=== PATIENT | male | born 2000 | race Caucasian/White ===

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

== ENCOUNTER 2019-01-11 11:27 | Outpatient (CLI) | payer OTHER ==
--- NOTE | 2019-01-11 11:52 | Diagnostic Imaging Report ---
PATIENT MR#: [id number] PATIENT PATIENT NAME: RITU DELATORRE DATE OF : 2000 REFERRING PHYSICIAN: Raquel Pichardo EXAM DATE: 01/11/2019 ACCESSION NUMBER: [id number] EXAM DESCRIPTION: CHEST 2VIEW HISTORY: CXR, CHRONIC COUGH, PT STATES PRODUCTIVE COUGH FOR ABOUT 6 MONTHS. PRIOR CXR FROM 06/07/17. COMPARISON: June 07, 2017 CHEST RADIOGRAPH, FRONTAL AND LATERAL: Upper mediastinum: Not widened. Heart: No cardiomegaly. Lungs: No lobar infiltrate, pulmonary edema, pneumothorax or significant effusion. Skeleton: No acute findings. IMPRESSION: No acute thoracic process. Read by: Dr. Shamar Sen Transcribed by: Shamar Sen Transcribed Date: 01/11/2019 11:51:48 AM Electronically signed by: Dr. Shamar Sen Date signed: 01/11/2019 11:51:48 AM
== END 2019-01-11 11:37 ==
LOC: RAD 11:27
PROVIDERS: ATTEND Family Medicine
DX: R05 Cough (principal)
CPT/HCPCS: 71046